=== PATIENT | female | born 1970 | race Caucasian/White ===

== ENCOUNTER 2021-04-28 22:20 | Emergency (ER) | payer MEDICAID ==
[~2021-04-28] VITALS: Ht 160 cm; Wt 77.1 kg
[2021-04-28 22:25] VITALS: BP_SYST 147
[2021-04-28] MEDS ORDERED: methylPREDNISolone SOD SUCC/PF 62.5 MG/ML VIAL IVP ONE (22:30)
[2021-04-28] MEDS ORDERED: NACL 0.9% 1,000 ML IV ONE (22:30)
[2021-04-28] MEDS ORDERED: MAGNESIUM SULFATE IV ONE (22:30)
[2021-04-28] MEDS ORDERED: NS IV ONE (22:30)
[2021-04-28] MEDS ORDERED: IPRATROPIUM BROM 0.5 MG/2.5 ML VIAL.NEB (ATROVENT) INH ONE (22:45)
[2021-04-28] MEDS ORDERED: ALBUTEROL SULFATE 0.083% 2.5 MG/3 ML VIAL.NEB INH ONE (22:45)
[2021-04-28] MEDS ORDERED: MAGNESIUM SULFATE 1 GM/2 ML VIAL ONE (22:55)
[2021-04-28] MEDS ORDERED: MAGNESIUM SULFATE 50 ML IV ONE ×2 (22:57→23:01)
[2021-04-28 23:02] LABS: MONOCYTES # (AUTO) 0.5 K/uL (0.0-1.0); RED CELL DISTRIBUTION WIDTH 13.4 % (9.0-15.0)
[2021-04-28 23:08] LABS: BASOPHILS # (AUTO) 0.1 K/uL (0.0-0.2); BASOPHILS % (AUTO) 0.8 % (0.0-2.0); EOSINOPHILS # (AUTO) 0.7 K/uL (0.0-0.4); EOSINOPHILS % (AUTO) 8.2 % (0.0-4.0); HEMATOCRIT 43.5 % (36-48); HEMOGLOBIN 14.7 g/dL (12.0-16.0); LYMPHOCYTES # (AUTO) 2.6 K/uL (1.0-5.5); LYMPHOCYTES % (AUTO) 29.3 % (20.5-51.5); MEAN CORPUSCULAR HEMOGLOBIN 31 pg (27-31); MEAN CORPUSCULAR HGB CONC 34 % (32-36); MEAN CORPUSCULAR VOLUME 93 fL (79.0-98.0); NEUTROPHILS % (AUTO) 55.7 % (40.0-70.0); PLATELET COUNT (AUTO) 203 K/uL (130-430); WHITE BLOOD COUNT (AUTO) 8.9 K/uL (4.8-10.8)
[2021-04-28 23:17] LABS: CALCIUM 8.9 mg/dL (8.4-11.0); CREATININE 1.01 mg/dL (0.55-1.30); POTASSIUM 3.5 mmol/L (3.5-5.1)
[2021-04-29] MEDS ORDERED: ALBUTEROL SULFATE 0.083% 2.5 MG/3 ML VIAL.NEB INH ONE (01:00)
[2021-04-29] MEDS ORDERED: IPRATROPIUM BROM 0.5 MG/2.5 ML VIAL.NEB (ATROVENT) INH ONE (01:00)
[2021-04-29] MEDS ORDERED: LORA10TA7 PO (02:23)
[2021-04-29] MEDS ORDERED: IPRA0.2S53 IH (02:23)
[2021-04-29] MEDS ORDERED: PRED20TA PO (02:23)
[2021-04-29 02:35] VITALS: BP_SYST 150
== END 2021-04-29 02:37 | disposition home or self-care (01) ==
LOC: SED 22:20
DX: J45.901 Unspecified asthma with (acute) exacerbation (principal); Z79.899 Other long term (current) drug therapy; Z20.822 Contact with and (suspected) exposure to COVID-19
CPT/HCPCS: 36415; 71045; 80048; 82962; 85025; 87426; 94640; 96365; 96375; 99291; J2930; J3475; J7613 ×2

== ENCOUNTER 2022-01-12 13:20 | Emergency (ER) | payer MEDICAID ==
[~2022-01-12] VITALS: Ht 160 cm; Wt 84.8 kg
[~2022-01-12 13:20] MED LIST: IPRA0.2S53 IH; LORA10TA7 PO; PRED20TA PO
[2022-01-12 13:28] VITALS: BP_SYST 116
--- NOTE | 2022-01-12 14:56 | NUR ---
Pt present to Ed with complaint of left calf pain AOx4 GCS 15. Pt active smoker with sedentary lifestyyle. Pt roomed to ED 4. ED physician at bedside.
[2022-01-12 15:30] LABS: BASOPHILS % (AUTO) 0.6 % (0.0-2.0); EOSINOPHILS # (AUTO) 0.5 K/uL (0.0-0.4); EOSINOPHILS % (AUTO) 7.3 % (0.0-4.0); HEMATOCRIT 40.7 % (36-48); HEMOGLOBIN 14.2 g/dL (12.0-16.0); LYMPHOCYTES # (AUTO) 3.1 K/uL (1.0-5.5); LYMPHOCYTES % (AUTO) 45.4 % (20.5-51.5); MEAN CORPUSCULAR HEMOGLOBIN 33 pg (27-31); MEAN CORPUSCULAR HGB CONC 35 % (32-36); MEAN CORPUSCULAR VOLUME 95 fL (79.0-98.0); MONOCYTES # (AUTO) 0.5 K/uL (0.0-1.0); MONOCYTES % (AUTO) 8.2 % (1.7-9.3); NEUTROPHILS # (AUTO) 2.6 K/uL (1.8-7.7); NEUTROPHILS % (AUTO) 38.5 % (40.0-70.0); PLATELET COUNT (AUTO) 179 K/uL (130-430); RED CELL DISTRIBUTION WIDTH 13.2 % (9.0-15.0); WHITE BLOOD COUNT (AUTO) 6.7 K/uL (4.8-10.8)
[2022-01-12 15:51] LABS: CREATININE 1.8 mg/dL (0.55-1.30)
[2022-01-12 15:54] LABS: ALBUMIN 3.6 g/dL (3.4-4.8); TOTAL BILIRUBIN 0.7 mg/dL (0.0-1.0)
[2022-01-12 16:27] LABS: CALCIUM 9.3 mg/dL (8.4-11.0)
[2022-01-12] MEDS ORDERED: ACET-2634 PO (16:42)
[2022-01-12 16:51] VITALS: BP_SYST 109
== END 2022-01-12 16:52 | disposition home or self-care (01) ==
LOC: SED 13:20
DX: S86.112A Strain of other muscle(s) and tendon(s) of posterior muscle group at lower leg level, left leg, initial encounter (principal); J45.909 Unspecified asthma, uncomplicated; E11.9 Type 2 diabetes mellitus without complications; I10 Essential (primary) hypertension; Z79.899 Other long term (current) drug therapy; X58.XXXA Exposure to other specified factors, initial encounter; Y93.01 Activity, walking, marching and hiking; Y92.89 Other specified places as the place of occurrence of the external cause; Y99.8 Other external cause status
CPT/HCPCS: 36415; 80053; 85025; 85610-TC; 85730-TC; 93971; 99284